=== PATIENT | female | born 1990 | race Caucasian/White ===

== ENCOUNTER 2019-04-09 07:08 | Inpatient (IN) | payer SELFPAY ==
[~2019-04-09 07:08] MED LIST: Bupivacaine 0.25% 10 ML SDV ONE
[2019-04-09] MEDS ORDERED: Sodium Chloride 0.9% 10 ML Syringe FLUSH PRN (07:17)
[2019-04-09] MEDS ORDERED: Nalbuphine 10 MG/1 ML Vial IVPUSH PRN (07:17)
[2019-04-09] MEDS ORDERED: Oxytocin/Lactated Ringers 10 UNIT/1,000 ML BAG IV SCH ×2 (07:30)
[2019-04-09] MEDS: Lactated Ringers 1,000 ML IV SCH ×3 (08:00→18:25)
--- NOTE | 2019-04-09 08:12 | PCM.LDHP ---
L&D History of Present Illness - General Date of Service: 04/09/19 Admit Problem/Dx: Patient Status Order with Admit Dx/Problem 04/09/19 07:17 Patient Status [ADT] Routine Admission Diagnosis/Problem Admission Diagnosis/Problem Source of Information: Patient, Family History Limitations: Reports: No Limitations - History of Present Illness Introduction:: Patient is a who is 37w0d today who presents today for induction of mild preeclampsia. Blood pressures have remained in the 140s systolic with variability of diastolic from 75-95. Patient is GBS negative via GBS swab done 04/02/19. Labs drawn on 03/17/19 show hemoglobin of 9.4 and platelets of 179, down from initial hemoglobin of 10.7 and platelets of 222 done at initial visit 09/23/18. 1 hour glucose tolerance test of 114 01/08/16. Type and screen demonstrates O positive with negative antibody screen on 09/23/18. Nonreactive syphilis test, evidence of rubella immunity, nonreactive HIV test, nonreactive HBsAg screen done 09/23/18. She has had an approximate 38 pound weight gain during from 248 to 286 lbs. Previous includes male at 33 weeks. Last menstrual period prior to conception was unknown. She has no history of STIs, abnormal pap smears or LEEP procedures prior to conception. - Related Data Allergies/Adverse Reactions: Allergies Allergy/AdvReac Type Severity Reaction Status Date / Time No Known Allergies Allergy Verified 04/09/19 07:17 Home Medications: Home Meds Calcium Phosphate Trib/Vit D3 [Calcium + Vitamin D3 Gummies] 2 each PO DAILY [History] Pnv with Ca,No.72/Iron/Fa [ Vitamin with Low Iron] 1 each PO DAILY 04/09 [History] Past Medical History [employer] History: Reports: Other (See Below) ( ) : 2 Para: 1 LMP (Approximate): Other OB/BYN History: Patient is a with previous history of of 33 week old male 12/06/11 - Past Surgical History HEENT Surgical History: Reports: Tonsillectomy Other HEENT Surgeries/Procedures: Tympanostomy tube placement, Lasik eye surgery 2018 Cardiovascular Surgical History: Reports: None Respiratory Surgical History: Reports: None GI Surgical History: Reports: None Female Surgical History: Reports: None Endocrine Surgical History: Reports: None Neurological Surgical History: Reports: None Musculoskeletal Surgical History: Reports: None Oncologic Surgical History: Reports: None Dermatological Surgical History: Reports: None Social & Family History - Family History Family Medical History: Noncontributory Cardiac: Reports: Hypertension (Father) Other Cardiac Family History: Heart disease paternal uncle () Endocrine/Metabolic: Reports: Diabetes, Type I (Maternal aunt), Diabetes, type II (Maternal grandmother, paternal aunt) Oncologic: Reports: Breast (Paternal aunt), Liver (Paternal uncle, ) - Tobacco Use Smoking Status *Q: Current Some Day Smoker Tobacco Use Within Last Twelve Months: Cigarettes (Average use .25 packs/day) Used Tobacco, but Quit: Yes Month/Year Tobacco Last Used: 04/08/19 - Caffeine Use Caffeine Use: Reports: Coffee, Soda - Alcohol Use Alcohol Use History: No - Recreational Drug Use Recreational Drug Use: No - Sexual History Other Sexual History Comment: Currently sexually active, male partners - Living Situation & Occupation Living situation: Reports: 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 Denies: Ear Pain, Headaches , Rhinitis, Post Nasal Drip, Sore Throat, Visual Changes Pulmonary: Denies: Shortness of Breath, Wheezing, Cough Cardiovascular: Reports: Edema (Pedal edema). Denies: Chest Pain, Palpitations Gastrointestinal: Denies: Abdominal Pain, Black Stool, Bloody Stool, Constipation, Diarrhea, Hematochezia, Melena Genitourinary: Denies: Dysuria, Frequency, Burning, Incontinence Musculoskeletal: Reports: No Symptoms Skin: Reports: No Symptoms Psychiatric: Denies: Depression, Anxiety Neurological: Denies: Dizziness, Headache, Numbness, Paresthesia, Seizure Hematologic/Lymphatic: Reports: Easy Bleeding (Feels like she has some easy bleeding on arms and legs. No history of clotting disorders ), Easy Bruising Immunologic: Reports: No Symptoms L&D Exam - Exam Exam: See Below - Vital Signs Vital Signs: BP: 138/70 Pulse 94 Respiratory 18 Temp 97.6 Weight: 295 lb - OB Specific Movement: Active Heart Tones: Present Heart Tones per Min: 135 Heart Rate (FHR) Variability: Moderate (6-25 bmp) Presentation: Vertex - Degroot Score Degroot Score Effacement: 31-50% Degroot Score Dilation: 1-2 cm Degroot Score 's Station: -2 - Exam General: Alert, Oriented HEENT: Conjunctiva Clear, EACs Clear, EOMI, Hearing Intact, Mucosa Moist & [place] , Nares Patent, Pupils Equal Neck: Supple, Trachea Midline. No: Lymphadenopathy, Thyromegaly Lungs: Clear to Auscultation, Normal Respiratory Effort Cardiovascular: Regular Rate, Regular Rhythm GI/Abdominal Exam: Normal Bowel Sounds, Soft, Non-Tender, No Distention Back Exam: Normal Inspection Extremities: Normal Inspection, Non-Tender, No Pedal Edema, Normal Capillary Refill Skin: Warm, Dry, Intact Neurological: Cranial Nerves Intact, Reflexes Equal Bilateral. No: Clonus DTR: 1+: Patella (L), Patella (R) Psychiatric: Alert, Normal Affect, Normal Mood - Patient Data Result Diagrams: 04/09/19 07:37 04/09/19 07:37 - Problem List (1) SNOMED Code(s): 33074639 ICD Code: Z34.90 - ENCNTR FOR SUPRVSN OF NORMAL , UNSP, UNSP TRIMESTER Status: Acute Current Visit: Yes Qualifiers: Weeks of gestation: 37 weeks Qualified Code(s): Z3A.37 - 37 weeks gestation of (2) Preeclampsia SNOMED Code(s): 398421333 ICD Code: O14.90 - UNSPECIFIED PRE-ECLAMPSIA, UNSPECIFIED TRIMESTER Status : Acute Current Visit: Yes Problem List Initiated/Reviewed/Updated: Yes Orders Last 24hrs: Active Orders 24 hr Category Date Time Status Patient Status [ADT] Routine ADT 04/09/19 07:17 Active Activity as Tolerated [RC] PFP Care 04/09/19 07:17 Active Communication Order [RC] ASDIRECTED Care 04/09/19 07:17 Active Heart Tones [RC] ASDIRECTED Care 04/09/19 07:18 Active Non Stress Test [RC] PER UNIT ROUTINE Care 04/09/19 07:17 Active Notify Provider [RC] PFP Care 04/09/19 07:17 Active Notify Provider [RC] PRN Care 04/09/19 07:17 Active Peripheral IV Care [RC] . DIRECTED Care 04/09/19 07:18 Active Vital Signs [RC] PER UNIT ROUTINE Care 04/09/19 07:17 Active Regular Diet [DIET] Diet 04/09/19 Breakfast Active ALANINE AMINOTRANSFERASE,ALT [CHEM] Stat Lab 04/09/19 07:37 Received ASPARTATE AMNIOTRANSFERASE,AST [CHEM] Stat Lab 04/09/19 07:37 Received BLOOD BANK HOLD SPECIMEN [BBK] Routine Lab 04/09/19 07:17 Ordered BLOOD UREA NITROGEN,BUN [CHEM] Stat Lab 04/09/19 07:37 Received CBC WITH AUTO DIFF [HEME] Stat Lab 04/09/19 07:37 Received CREATININE W/GFR [CHEM] Stat Lab 04/09/19 07:37 Received LACTATE DEHYDROGENASE,LDH [CHEM] Stat Lab 04/09/19 07:37 Received RAPID PLASMA REAGIN,RPR [CHEM] Routine Lab 04/09/19 07:17 Ordered UA W/O MICROSCOPIC [URIN] Routine Lab 04/09/19 07:30 Received URIC ACID [CHEM] Stat Lab 04/09/19 07:37 Received Lactated Ringers [Ringers, Lactated] 1,000 ml Med 04/09/19 07:30 Active IV ASDIRECTED Nalbuphine [Nubain] Med 04/09/19 07:17 Active 10 mg IVPUSH Q2H PRN Oxytocin/Lactated Ringers [Pitocin in LR 10 Units/1,000 Med 04/09/19 07:30 Active ML] 10 unit in 1,000 ml IV .CONTINUOUS Oxytocin/Lactated Ringers [Pitocin in LR 10 Units/1,000 Med 04/09/19 07:30 Active ML] 10 unit in 1,000 ml IV TITRATE Sodium Chloride 0.9% [Saline Flush] Med 04/09/19 07:17 Active 10 ml FLUSH ASDIRECTED PRN Electronic Heart Tones Ext w TOCO [WOMSER] Oth 04/09/19 07:17 Ordered Routine Electronic Heart Tones Internal [WOMSER] Per Unit Oth 04/09/19 07:17 Ordered Routine PIH Panel [OM.PC] Routine Oth 04/09/19 07:17 Ordered Peripheral IV Insertion Adult [OM.PC] Routine Oth 04/09/19 07:17 Ordered Resuscitation Status Routine Resus Stat 04/09/19 07:17 Ordered Medication Orders Lactated Ringer's (Ringers, Lactated) 1,000 mls @ 100 mls/hr IV ASDIRECTED KTAHY Oxytocin/Lactated Ringer's (Pitocin In Lr 10 Units/1,000 Ml) 10 unit in 1,000 mls @ 12 mls/hr IV TITRATE KATHY; Protocol Oxytocin/Lactated Ringer's (Pitocin In Lr 10 Units/1,000 Ml) 10 unit in 1,000 mls @ 500 mls/hr IV .CONTINUOUS KATHY Nalbuphine HCl (Nubain) 10 mg IVPUSH Q2H PRN PRN Reason: Pain Sodium Chloride (Saline Flush) 10 ml FLUSH ASDIRECTED PRN PRN Reason: Keep Vein Open Assessment/Plan Comment:: Term labor with induction for mild preeclampsia. Doing well.
[2019-04-09] MEDS ORDERED: Ondansetron 4 MG/2 ML SDV IVPUSH PRN (10:35)
[2019-04-09] MEDS ORDERED: ePHEDrine 50 MG/ML SDV IVPUSH PRN (10:35)
[2019-04-09] MEDS ORDERED: fentaNYL 100 MCG/2 ML SDV EPIDUR PRN (10:35)
--- NOTE | 2019-04-09 10:39 | PCM.PREANE ---
Preanesthetic Assessment - Anesthesia/Transfusion/Family Hx Anesthesia History: Prior Anesthesia Without Reaction Family History of Anesthesia Reaction: No Transfusion History: No Prior Transfusion(s) Intubation History: Unknown - Review of Systems General: No Symptoms Pulmonary: No Symptoms (Smoker: 1/4ppd times 15 years) Cardiovascular: No Symptoms (Pre-eclampsia) Gastrointestinal: No Symptoms (GERD) Neurological: No Symptoms Other: Reports: None, Easy Bleeding, Easy Bruising - Physical Assessment NPO Status Date: 04/09/19 NPO Status Time: 12:00 Vital Signs: Last Vital Signs Temp 36.4 C 04/09/19 07:17 Pulse 93 04/09/19 08:00 Resp 18 04/09/19 07:17 BP 138/70 04/09/19 07:32 Pulse Ox Height: 1.73 m Weight: 133.81 kg ASA Class: 2 Mental Status: Alert & Oriented x3 Airway Class: Mallampati = 3 Dentition: Reports: Normal Dentition, Caries Thyro-Mental Finger Breadths: 3 Mouth Opening Finger Breadths: 3 ROM/Head Extension: Full Lungs: Clear to Auscultation, Normal Respiratory Effort Cardiovascular: Regular Rate, Regular Rhythm, No Murmurs - Lab Values: Laboratory Last Values WBC 8.91 K/mm3 (3.98-10.04) 04/09/19 07:37 RBC 3.83 M/mm3 (3.98-5.22) L 04/09/19 07:37 Hgb 9.5 gm/L (11.2-15.7) L 04/09/19 07:37 Hct 30.4 % (34.1-44.9) L 04/09/19 07:37 MCV 79.4 fl (79.4-94.8) 04/09/19 07:37 MCH 24.8 pg (25.6-32.2) L 04/09/19 07:37 MCHC 31.3 g/dl (32.2-35.5) L 04/09/19 07:37 RDW Std Deviation 44.4 fL (36.4-46.3) 04/09/19 07:37 Plt Count 217 K/mm3 (182-369) 04/09/19 07:37 MPV 10.5 fl (9.4-12.3) 04/09/19 07:37 Neut % (Auto) 74.1 % (34.0-71.1) H 04/09/19 07:37 Lymph % (Auto) 16.6 % (19.3-51.7) L 04/09/19 07:37 [place] % (Auto) 7.0 % (4.7-12.5) 04/09/19 07:37 Eos % (Auto) 1.5 (0.7-5.8) 04/09/19 07:37 Baso % (Auto) 0.1 % (0.1-1.2) 04/09/19 07:37 Neut # (Auto) 6.61 K/mm3 (1.56-6.13) H 04/09/19 07:37 Lymph # (Auto) 1.48 K/mm3 (1.18-3.74) 04/09/19 07:37 [place] # (Auto) 0.62 K/mm3 (0.24-0.36) H 04/09/19 07:37 Eos # (Auto) 0.13 K/mm3 (0.04-0.36) 04/09/19 07:37 Baso # (Auto) 0.01 K/mm3 (0.01-0.08) 04/09/19 07:37 BUN 6 mg/dL (7-18) L 04/09/19 07:37 Creatinine 0.6 mg/dL (0.55-1.02) 04/09/19 07:37 Est Cr Clr Drug Dosing 140.82 mL/min 04/09/19 07:37 Estimated GFR (MDRD) > 60 mL/min (>60) 04/09/19 07:37 Uric Acid 3.6 mg/dL (2.6-6.0) 04/09/19 07:37 AST 15 U/L (15-37) 04/09/19 07:37 ALT 20 U/L (14-59) 04/09/19 07:37 Lactate Dehydrogenase 175 U/L (81-234) 04/09/19 07:37 Urine Color Yellow (Yellow) 04/09/19 07:30 Urine Appearance Clear (Clear) 04/09/19 07:30 Urine pH 7.0 (5.0-8.0) 04/09/19 07:30 Ur Specific [place] > or = 1.030 (1.005-1.030) 04/09/19 07:30 Urine Protein Negative (Negative) 04/09/19 07:30 Urine Glucose (UA) Negative (Negative) 04/09/19 07:30 Urine Ketones Negative (Negative) 04/09/19 07:30 Urine Occult Blood Negative (Negative) 04/09/19 07:30 Urine Nitrite Negative (Negative) 04/09/19 07:30 Urine Bilirubin Negative (Negative) 04/09/19 07:30 Urine Urobilinogen 0.2 (0.2-1.0) 04/09/19 07:30 Ur Leukocyte Esterase Negative (Negative) 04/09/19 07:30 Above labs reviewed and noted and within acceptable ranges to proceed with epidural if desired. 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 (See Below) ( ) Other OB/BYN History: Patient is a with previous history of of 33 week old male 12/06/11 - Infectious Disease History Infectious Disease History: Reports: Chicken Pox - Past Surgical History HEENT Surgical History: Reports: Tonsillectomy Other HEENT Surgeries/Procedures: Tympanostomy tube placement, Lasik eye surgery 2018 Cardiovascular Surgical History: Reports: None Respiratory Surgical History: Reports: None GI Surgical History: Reports: None Female Surgical History: Reports: None Endocrine Surgical History: Reports: None Neurological Surgical History: Reports: None Musculoskeletal Surgical History: Reports: None Oncologic Surgical History: Reports: None Dermatological Surgical History: Reports: None - SUBSTANCE USE Smoking Status *Q: Current Some Day Smoker Tobacco Use Within Last Twelve Months: Cigarettes (Average use .25 packs/day) Second Hand Smoke Exposure: Yes Recreational Drug Use History: No - HOME MEDS Home Medications: Home Meds Calcium Phosphate Trib/Vit D3 [Calcium + Vitamin D3 Gummies] 2 each PO DAILY [History] Pnv with Ca,No.72/Iron/Fa [ Vitamin with Low Iron] 1 each PO DAILY 04/09 [History] - CURRENT (IN HOUSE) MEDS Current Meds: Current Medications Ephedrine Sulfate (Ephedrine Sulfate) 5 mg IVPUSH ASDIRECTED PRN PRN Reason: Hypotension Fentanyl (Sublimaze) 100 mcg EPIDUR Q3H PRN PRN Reason: Pain Fentanyl/Bupivacaine HCl (Fentanyl/Bupivacaine/Ns 2 Mcg-0.125% 100 Ml) 100 ml EPIDUR ASDIRECTED KATHY Lactated Ringer's (Ringers, Lactated) 1,000 mls @ 100 mls/hr IV ASDIRECTED KATHY Last Admin: 04/09/19 08:00 Dose: 100 mls/hr Oxytocin/Lactated Ringer's (Pitocin In Lr 10 Units/1,000 Ml) 10 unit in 1,000 mls @ 12 mls/hr IV TITRATE KATHY; Protocol Last Titration: 04/09/19 10:09 Dose: 6 munits/min, 36 mls/hr Oxytocin/Lactated Ringer's (Pitocin In Lr 10 Units/1,000 Ml) 10 unit in 1,000 mls @ 500 mls/hr IV .CONTINUOUS KATHY Phenylephrine HCl 1 mg/ Sodium (Chloride) 10.1 mls @ 1 mls/sec IV TITRATE KATHY; Protocol Nalbuphine HCl (Nubain) 10 mg IVPUSH Q2H PRN PRN Reason: Pain Ondansetron HCl (Zofran) 4 mg IVPUSH ONETIME PRN PRN Reason: Nausea/Vomiting Sodium Chloride (Saline Flush) 10 ml FLUSH ASDIRECTED PRN PRN Reason: Keep Vein Open
[2019-04-09] MEDS ORDERED: Phenylephrine 1 MG in Sodium Chloride 0.9% 10 ML IV SCH (10:45)
[2019-04-09] MEDS ORDERED: Bupivacaine/fentaNYL/NS 100 ML Bag EPIDUR SCH (10:45)
[2019-04-09] MEDS ORDERED: Sodium Chloride 0.9% 1,000 ML ONE (20:35)
--- NOTE | 2019-04-09 22:35 | PCM.SN ---
- Free Text/Narrative Note: Stage I - Patient presented for induction of labor for pre-ecclampsia. Pitocin and AROM. Progressed to complete with reassuring heart tones. Stage II- of viable male, weight 8#1oz, APGARS 8/9 at 2218. Head delivered over intact perineum. Body and shoulders atraumatically. Mild shoulder dystocia resolved with Anastacio. Stage III - of intact placenta. 3vc. 2nd degree laceration repaired with 3- 0 vicryl.
[2019-04-09] MEDS ORDERED: Docusate Sodium 100 MG Cap PO PRN (23:48)
[2019-04-09] MEDS ORDERED: Benzocaine/Menthol 20%-0.5% Spray 56 GM Canister TOP PRN (23:48)
[2019-04-10] MEDS: Witch Hazel Medicated Pads 40/Jar TOP PRN ×2 (03:14→03:15)
[2019-04-10] MEDS: Ibuprofen 600 MG Tab PO PRN ×2 (06:43→19:13)
--- NOTE | 2019-04-10 08:53 | PCM48HPAN ---
Post Anesthesia Note - EVALUATION WITHIN 48HRS OF ANESTHETIC Vital Signs in Normal Range: Yes Patient Participated in Evaluation: Yes Respiratory Function Stable: Yes Airway Patent: Yes Cardiovascular Function Stable: Yes Hydration Status Stable: Yes Pain Control Satisfactory: Yes Nausea and Vomiting Control Satisfactory: Yes Mental Status Recovered: Yes Vital Signs: Last Vital Signs Temp 36.7 C 04/10/19 03:20 Pulse 104 H 04/10/19 03:20 Resp 18 04/10/19 03:20 BP 150/78 H 04/10/19 03:20 Pulse Ox 98 04/10/19 03:20 - COMMENTS/OBSERVATIONS Free Text/Narrative:: no anesthesia complications noted
--- NOTE | 2019-04-10 10:11 | PCM.PNPP ---
- General Info Date of Service: 04/10/19 Functional Status: Reports: Pain Controlled - Review of Systems General: Reports: No Symptoms HEENT: Reports: No Symptoms Pulmonary: Reports: No Symptoms Cardiovascular: Reports: No Symptoms Gastrointestinal: Reports: No Symptoms Genitourinary: Reports: No Symptoms Musculoskeletal: Reports: No Symptoms Skin: Reports: No Symptoms Neurological: Reports: No Symptoms Psychiatric: Reports: No Symptoms - General Info Date of Service: 04/10/19 - Patient Data Vital Signs - Most Recent: Last Vital Signs Temp 36.7 C 04/10/19 09:05 Pulse 95 04/10/19 09:05 Resp 18 04/10/19 03:20 BP 135/92 H 04/10/19 09:05 Pulse Ox 100 04/10/19 09:05 Weight - Most Recent: 133.81 kg I&O - Last 24 Hours: Intake & Output 04/09/19 04/10/19 04/10/19 22:59 06:59 14:59 Intake Total 1060 3000 Output Total 1300 Balance -240 3000 Lab Results - Last 24 Hours: Laboratory Results - last 24 hr 04/09/19 Range/Units 07:37 RPR Non-reactive (NONREACTIVE) Med Orders - Current: Current Medications Benzocaine/Menthol (Dermoplast Pain Relief [place]) 0 gm TOP ASDIRECTED PRN PRN Reason: Perineal Comfort Measure Last Admin: 04/10/19 03:14 Dose: 1 can Docusate Sodium (Colace) 100 mg PO BID PRN PRN Reason: Constipation Ibuprofen (Motrin) 600 mg PO Q6H PRN PRN Reason: Mild pain or fever Last Admin: 04/10/19 06:43 Dose: 600 mg Witch Nataliia (Tucks) 1 pad TOP ASDIRECTED PRN PRN Reason: Pain Last Admin: 04/10/19 03:15 Dose: 1 canister Discontinued Medications Ephedrine Sulfate (Ephedrine Sulfate) 5 mg IVPUSH ASDIRECTED PRN PRN Reason: Hypotension Fentanyl (Sublimaze) 100 mcg EPIDUR Q3H PRN PRN Reason: Pain Last Admin: 04/09/19 15:19 Dose: 100 mcg Fentanyl/Bupivacaine HCl (Fentanyl/Bupivacaine/Ns 2 Mcg-0.125% 100 Ml) 100 ml EPIDUR ASDIRECTED KATHY Last Admin: 04/09/19 15:19 Dose: 100 ml Lactated Ringer's (Ringers, Lactated) 1,000 mls @ 100 mls/hr IV ASDIRECTED KATHY Last Admin: 04/09/19 18:25 Dose: 100 mls/hr Oxytocin/Lactated Ringer's (Pitocin In Lr 10 Units/1,000 Ml) 10 unit in 1,000 mls @ 12 mls/hr IV TITRATE KATHY; Protocol Last Titration: 04/09/19 20:16 Dose: 8 munits/min, 48 mls/hr Oxytocin/Lactated Ringer's (Pitocin In Lr 10 Units/1,000 Ml) 10 unit in 1,000 mls @ 500 mls/hr IV .CONTINUOUS KATHY Phenylephrine HCl 1 mg/ Sodium (Chloride) 10.1 mls @ 1 mls/sec IV TITRATE KATHY; Protocol Sodium Chloride (Normal Saline) Confirm Administered Dose 1,000 mls @ as directed .ROUTE .[facility] Stop: 04/09/19 20:36 Nalbuphine HCl (Nubain) 10 mg IVPUSH Q2H PRN PRN Reason: Pain Ondansetron HCl (Zofran) 4 mg IVPUSH ONETIME PRN PRN Reason: Nausea/Vomiting Sodium Chloride (Saline Flush) 10 ml FLUSH ASDIRECTED PRN PRN Reason: Keep Vein Open - Interaction Disposition, : [place] to Nursery Support Person: Mother - Recovery Exam Fundal Tone: Firm Fundal Level: At Umbilicus Fundal Placement: Midline Lochia Amount: Small Lochia Color: Rubra/Red Bladder Status: Voiding - Exam General: Alert, Oriented HEENT: Pupils Equal Neck: Supple Lungs: Clear to Auscultation, Normal Respiratory Effort Cardiovascular: Regular Rate, Regular Rhythm GI/Abdominal Exam: Normal Bowel Sounds, Soft, Non-Tender, No Organomegaly, No Distention, No Abnormal Bruit, No Mass, Pelvis Stable Extremities: Normal Inspection, Normal Range of Motion, Non-Tender, No Pedal Edema, Normal Capillary Refill Skin: Warm, Dry, Intact Neurological: No New Focal Deficit Psy/Mental Status: Alert, Normal Affect, Normal Mood - Problem List Review Problem List Initiated/Reviewed/Updated: Yes - My Orders Last 24 Hours: My Active Orders 04/09/19 23:48 Activity as Tolerated [RC] PER UNIT ROUTINE Vital Signs [RC] 03,09,15,21 Benzocaine/Menthol [Dermoplast Pain Relief [place]] See Dose Instructions TOP ASDIRECTED PRN Docusate Sodium [Colace] 100 mg PO BID PRN Ibuprofen [Motrin] 600 mg PO Q6H PRN Witch Nataliia [Tucks] 1 pad TOP ASDIRECTED PRN Assess Lochia [WOMSER] Per Unit Routine Assess Uterine Involution [WOMSER] Per Unit Routine Breast Pump [WOMSER] Per Unit Routine Heat Therapy [OM.PC] PRN Medication Administration Instruction [OM.PC] Routine Perineal Care [OM.PC] Per Unit Routine Sitz Bath [OM.PC] Per Unit Routine 04/10/19 23:48 Heat Therapy [OM.PC] PRN 04/10/19 Breakfast Regular Diet [DIET] - Assessment Assessment:: PPD1 Doing great. - Plan Plan:: HOme tomorrow. Routine care.
[2019-04-10] MEDS ORDERED: Acetaminophen 325 MG Tab PO PRN (21:40)
[2019-04-10] MEDS ORDERED: Lanolin 100% Cream 7 GM Tube TOP PRN (21:41)
[2019-04-11] MEDS: Ibuprofen 600 MG Tab PO PRN (02:38)
--- NOTE | 2019-04-11 07:05 | PCM.DCSUM1 ---
Discharge Summary - Hospital Course Diagnosis: Stroke: No - Discharge Data Discharge Date: 04/11/19 Discharge Disposition: Home, Self-Care 01 Condition: Good - Patient Summary/Data Operative Procedure(s) Performed: Hospital Course: Stage I - Patient presented for induction of labor for pre-ecclampsia. Pitocin and AROM. Progressed to complete with reassuring heart tones. Stage II- of viable male, weight 8#1oz, APGARS 8/9 at 2218. Head delivered over intact perineum. Body and shoulders atraumatically. Mild shoulder dystocia resolved with Anastacio. Stage III - of intact placenta. 3vc. 2nd degree laceration repaired with 3- 0 vicryl. - Patient Instructions Diet: Usual Diet as Tolerated Activity: No Strenuous Activities Driving: May Drive Today Showering/Bathing: December Shower Notify Provider of: Fever, Increased Pain, Swelling and Redness, Drainage, Nausea and/or Vomiting - Discharge Plan *PRESCRIPTION DRUG MONITORING PROGRAM REVIEWED*: No *COPY OF PRESCRIPTION DRUG MONITORING REPORT IN PATIENT MARCIO: No Home Medications: Home Meds Calcium Phosphate Trib/Vit D3 [Calcium + Vitamin D3 Gummies] 2 each PO DAILY [History] Pnv with Ca,No.72/Iron/Fa [ Vitamin with Low Iron] 1 each PO DAILY 04/09 [History] Oxygen Therapy Mode: Room Air Referrals: Madina Amato MD [Primary Care Provider] - ([facility] in [facility]) - Discharge Summary/Plan Comment DC Time >30 min.: No - General Info Date of Service: 04/11/19 Functional Status: Reports: Pain Controlled - Review of Systems General: Reports: No Symptoms HEENT: Reports: No Symptoms Pulmonary: Reports: No Symptoms Cardiovascular: Reports: No Symptoms Gastrointestinal: Reports: No Symptoms Genitourinary: Reports: No Symptoms Musculoskeletal: Reports: No Symptoms Skin: Reports: No Symptoms Neurological: Reports: No Symptoms Psychiatric: Reports: No Symptoms - Patient Data Vitals - Most Recent: Last Vital Signs Temp 36.3 C 04/11/19 03:04 Pulse 84 04/11/19 03:04 Resp 15 04/11/19 03:04 BP 125/58 L 04/11/19 03:04 Pulse Ox 100 04/11/19 03:04 Weight - Most Recent: 133.81 kg Med Orders - Current: Current Medications Acetaminophen (Tylenol) 650 mg PO Q6H PRN PRN Reason: Pain (mild 1-3) Last Admin: 04/10/19 22:02 Dose: 650 mg Benzocaine/Menthol (Dermoplast Pain Relief [place]) 0 gm TOP ASDIRECTED PRN PRN Reason: Perineal Comfort Measure Last Admin: 04/10/19 03:14 Dose: 1 can Docusate Sodium (Colace) 100 mg PO BID PRN PRN Reason: Constipation Emollient Ointment (Lansinoh Hpa) 7 gm TOP ASDIRECTED PRN PRN Reason: Other Last Admin: 04/11/19 02:39 Dose: 1 tube Ibuprofen (Motrin) 600 mg PO Q6H PRN PRN Reason: Mild pain or fever Last Admin: 04/11/19 02:38 Dose: 600 mg Witch Nataliia (Tucks) 1 pad TOP ASDIRECTED PRN PRN Reason: Pain Last Admin: 04/10/19 03:15 Dose: 1 canister Discontinued Medications Bupivacaine HCl (Sensorcaine-Mpf 0.25%) 10 ml .ROUTE .[facility]-MED ONE Stop: 04/09/19 00:01 Ephedrine Sulfate (Ephedrine Sulfate) 5 mg IVPUSH ASDIRECTED PRN PRN Reason: Hypotension Fentanyl (Sublimaze) 100 mcg EPIDUR Q3H PRN PRN Reason: Pain Last Admin: 04/09/19 15:19 Dose: 100 mcg Fentanyl/Bupivacaine HCl (Fentanyl/Bupivacaine/Ns 2 Mcg-0.125% 100 Ml) 100 ml EPIDUR ASDIRECTED KATHY Last Admin: 04/09/19 15:19 Dose: 100 ml Lactated Ringer's (Ringers, Lactated) 1,000 mls @ 100 mls/hr IV ASDIRECTED KATHY Last Admin: 04/09/19 18:25 Dose: 100 mls/hr Oxytocin/Lactated Ringer's (Pitocin In Lr 10 Units/1,000 Ml) 10 unit in 1,000 mls @ 12 mls/hr IV TITRATE KATHY; Protocol Last Titration: 04/09/19 20:16 Dose: 8 munits/min, 48 mls/hr Oxytocin/Lactated Ringer's (Pitocin In Lr 10 Units/1,000 Ml) 10 unit in 1,000 mls @ 500 mls/hr IV .CONTINUOUS KATHY Phenylephrine HCl 1 mg/ Sodium (Chloride) 10.1 mls @ 1 mls/sec IV TITRATE KATHY; Protocol Sodium Chloride (Normal Saline) Confirm Administered Dose 1,000 mls @ as directed .ROUTE .[facility]-MED ONE Stop: 04/09/19 20:36 Nalbuphine HCl (Nubain) 10 mg IVPUSH Q2H PRN PRN Reason: Pain Ondansetron HCl (Zofran) 4 mg IVPUSH ONETIME PRN PRN Reason: Nausea/Vomiting Sodium Chloride (Saline Flush) 10 ml FLUSH ASDIRECTED PRN PRN Reason: Keep Vein Open - Exam General: Reports: Alert, Oriented HEENT: Reports: Pupils Equal, Pupils Reactive, EOMI, Mucous Membr. Moist/[place] Neck: Reports: Supple Lungs: Reports: Clear to Auscultation, Normal Respiratory Effort Cardiovascular: Reports: Regular Rate, Regular Rhythm GI/Abdominal Exam: Normal Bowel Sounds, Soft, Non-Tender, No Organomegaly, No Distention, No Abnormal Bruit, No Mass, Pelvis Stable Back Exam: Reports: Normal Inspection, Full Range of Motion Extremities: Normal Inspection, Normal Range of Motion, Non-Tender, No Pedal Edema, Normal Capillary Refill Skin: Reports: Warm, Dry, Intact Wound/Incisions: Reports: Healing Well Neurological: Reports: No New Focal Deficit Psy/Mental Status: Reports: Alert, Normal Affect, Normal Mood
== END 2019-04-11 11:46 | disposition home or self-care (01) | DRG 807 ==
LOC: JD.OB 07:08 → OBSVTOIN 22:18
PROVIDERS: ADMIT Obstetrics & Gynecology; ATTEND Obstetrics & Gynecology
PROC: 10907ZC Drainage of Amniotic Fluid, Therapeutic from Products of Conception, Via Natural or Artificial Opening (ICD-10-PCS; principal; 2019-04-09)
PROC: 10E0XZZ Delivery of Products of Conception, External Approach (ICD-10-PCS; 2019-04-09)
PROC: 0KQM0ZZ Repair Perineum Muscle, Open Approach (ICD-10-PCS; 2019-04-09)
PROC: 3E033VJ Introduction of Other Hormone into Peripheral Vein, Percutaneous Approach (ICD-10-PCS; 2019-04-09)
DX: O14.04 Mild to moderate pre-eclampsia, complicating childbirth (principal); Z37.0 Single live birth; O99.334 Smoking (tobacco) complicating childbirth; F17.210 Nicotine dependence, cigarettes, uncomplicated; O70.1 Second degree perineal laceration during delivery; Z3A.37 37 weeks gestation of pregnancy
CPT/HCPCS: 36415; 51702; 59025; 59409; 81003; 82565; 83615; 84450; 84460; 84520; 84550; 85025; 86592; A9270-GY; J2590; J3010; J3490; J7120

== ENCOUNTER 2022-01-08 06:45 | Inpatient (IN) | payer BC ==
[2022-01-08] MEDS ORDERED: Sodium Chloride 0.9% 10 ML Syringe FLUSH PRN (07:09)
[2022-01-08] MEDS ORDERED: Ondansetron 4 MG/2 ML SDV IVPUSH PRN (07:09)
[2022-01-08] MEDS ORDERED: Oxytocin/Lactated Ringers 10 UNIT/1,000 ML BAG IV SCH ×2 (07:15)
[2022-01-08] MEDS ORDERED: Sodium Chloride 0.9% 10 ML Syringe FLUSH SCH (09:00)
[2022-01-08 09:44] LABS: ESTIMATED GFR > 60 mL/min (>60)
[2022-01-08] MEDS: Lactated Ringers 1,000 ML IV SCH ×3 (10:38→16:43)
[2022-01-08] MEDS ORDERED: Bupivacaine/fentaNYL/NS 100 ML Bag EPIDUR PRN (15:31)
[2022-01-08] MEDS ORDERED: fentaNYL 100 MCG/2 ML SDV EPIDUR PRN (15:31)
[2022-01-08] MEDS ORDERED: ePHEDrine 50 MG/ML SDV IVPUSH PRN (15:31)
[2022-01-08] MEDS ORDERED: diphenhydrAMINE 50 MG/ML SDV IVPUSH PRN (15:31)
[2022-01-08] MEDS ORDERED: Ibuprofen 600 MG Tab PO PRN (19:40)
[2022-01-08] MEDS ORDERED: Witch Hazel Medicated Pads 40/Jar TOP PRN (19:40)
[2022-01-08] MEDS ORDERED: Benzocaine/Menthol 20%-0.5% Spray 78 GM Cannister TOP PRN (19:40)
[2022-01-08] MEDS ORDERED: Acetaminophen 325 MG Tab PO PRN (19:40)
== END 2022-01-10 11:50 | disposition home or self-care (01) | DRG 560 ==
LOC: JD.OB 06:45 → INTOOBSV 06:45 → JD.OB 06:54 → OBSVTOIN 18:30 → JD.OB 18:31
PROVIDERS: ADMIT Obstetrics & Gynecology; ATTEND Obstetrics & Gynecology
PROC: 10E0XZZ Delivery of Products of Conception, External Approach (ICD-10-PCS; principal; 2022-01-08)
PROC: 0U7C7ZZ Dilation of Cervix, Via Natural or Artificial Opening (ICD-10-PCS; 2022-01-08)
PROC: 10907ZC Drainage of Amniotic Fluid, Therapeutic from Products of Conception, Via Natural or Artificial Opening (ICD-10-PCS; 2022-01-08)
PROC: 0KQM0ZZ Repair Perineum Muscle, Open Approach (ICD-10-PCS; 2022-01-08)
DX: O24.429 Gestational diabetes mellitus in childbirth, unspecified control (principal); Z3A.38 38 weeks gestation of pregnancy; Z37.0 Single live birth; O69.1XX0 Labor and delivery complicated by cord around neck, with compression, not applicable or unspecified; O66.0 Obstructed labor due to shoulder dystocia; O70.1 Second degree perineal laceration during delivery; O36.63X0 Maternal care for excessive fetal growth, third trimester, not applicable or unspecified
CPT/HCPCS: 01967; 36415; 51702; 59025; 59409; 82565; 82570; 82947; 83615; 84156; 84450; 84460; 84520; 84550; 85025; 86592; 86850; 86900; 86901; 86922; J2590; J3010; J3490; J7120